=== PATIENT | male | born 1950 | race Caucasian/White ===

== ENCOUNTER 2017-03-17 06:42 | Day surgery (SDC) | payer MEDICARE, BC ==
[~2017-03-17 06:42] MED LIST: Lactated Ringers 1,000 ML IV SCH
[2017-03-17] MEDS ORDERED: Propofol 200 MG/20 ML SDV ONE (07:59)
[2017-03-17] MEDS ORDERED: fentaNYL 100 MCG/2 ML SDV ONE (07:59)
[2017-03-17 09:56] VITALS: BP 111/60
--- NOTE | 2017-03-18 07:48 | OR ---
PREOPERATIVE DIAGNOSIS: Abdominal pain, history of ulcerative colitis. POSTOPERATIVE DIAGNOSIS: Mild gastroesophageal reflux disease and antritis. PROCEDURE PROPOSED AND PROCEDURE DONE: Upper gastrointestinal panendoscopy with GE junction biopsies, antral biopsies, and duodenal biopsies. INDICATION: This is a 66-year-old gentleman who was having some problems with upper abdominal pain and right-sided abdominal pain. He was evaluated with a CAT scan and gallbladder ultrasound. He does have a history of ulcerative colitis for many years, for which he takes Azulfidine. His most recent colonoscopy was 3 to 4 years ago. He does feel 90% better presently. He feels like the Protonix that was recently prescribed to him really helped his symptoms, and he has been on that for little over a week. He was recommended to proceed with an EGD to rule out any significant pathology. TECHNIQUE: The patient was brought to the endoscopy suite and placed in a left lateral decubitus position. He was sedated with MAC anesthesia per [employer] TECHNICIAN with propofol. The flexible video gastroscope was then passed transorally and, under visualization, advanced well down into the third and fourth portion of the duodenum. The duodenum appeared entirely normal. Several biopsies were taken from the duodenum. I then brought the scope back through the pylorus, which appeared normal. The antrum, however, did reveal some mild antritis, and there appeared to be a few punctate tiny ulcerations and some biopsies were taken from the antrum mainly to rule out H. pylori. The body and fundus of the stomach looked very normal. There was no evidence of any hiatal hernia. The GE junction did reveal some very minimal inflammation compatible with a very mild GERD. I did do some biopsies of the GE junction also. The remainder of the esophagus was normal as the scope was then withdrawn. He tolerated the procedure well. FINAL IMPRESSION: 1. Normal duodenum. 2. Minimal antritis and gastroesophageal reflux disease. Biopsies pending. PLAN: The patient appears to be responding nicely to the Protonix that he is on. He needs to continue taking that on a daily basis. He also needs to avoid caffeine, alcohol, ibuprofen, aspirin, and follow up with his PCP as needed. If his symptoms persist or become intermittent, one should consider obtaining a HIDA scan to rule out a gallbladder malfunction. He definitely does not have any gallstones based on his CAT scan and ultrasound. SCM: 03/17/2017 09:00:42 MODL: 03/17/2017 12:43:10 /[id number]
--- NOTE | 2017-03-20 10:47 | LETTER ---
03/20/2017 Mary Mcguire RE: MARY MCGUIRE : 1950 Dear Mr. Mcguire: The biopsies taken from your small intestine revealed no abnormalities. The biopsies taken from your stomach revealed some very mild inflammation and there was no evidence of the bacteria, known as H pylori in your stomach. I also did some biopsies from your gastroesophageal junction and those also did not reveal any worrisome findings. I am pleased to give you this good report. Hopefully, the medicine that you are on is continuing to make you feel better. If you continue to have some symptoms as we had discussed previously, I feel that you should proceed to have the HIDA scan done, and you can arrange that through your family doctor. Respectfully,
== END 2017-03-17 09:59 | disposition home or self-care (01) ==
LOC: VM.SDS 06:42
PROVIDERS: ATTEND Surgery
DX: K31.819 Angiodysplasia of stomach and duodenum without bleeding (principal); K29.60 Other gastritis without bleeding; K21.9 Gastro-esophageal reflux disease without esophagitis; Z79.899 Other long term (current) drug therapy; Z87.891 Personal history of nicotine dependence
CPT/HCPCS: 43239; J2704; J3010; J7120; 88305

== ENCOUNTER 2020-02-09 07:25 | Day surgery (SDC) | payer MEDICARE, BC ==
[2020-02-09] MEDS ORDERED: Sodium Chloride 0.9% 10 ML Syringe FLUSH PRN (08:00)
[2020-02-09] MEDS ORDERED: Lactated Ringers 1,000 ML IV SCH (08:00)
[2020-02-09] MEDS ORDERED: Propofol 200 MG/20 ML SDV ONE ×2 (08:13→09:18)
[2020-02-09] MEDS ORDERED: fentaNYL 100 MCG/2 ML SDV ONE (08:13)
[2020-02-09 10:16] VITALS: BP 106/70; PULSE 60
--- NOTE | 2020-02-09 13:16 | OR ---
DATE OF SURGERY: 02/09/2020. REFERRING PROVIDER: Anjum Olvera MD (new PCP is Dr. Lyon). PRE-OPERATIVE DIAGNOSIS: Ulcerative colitis, diagnosed greater than 20 years ago. The patient on sulfasalazine as needed for flare ups. The patient's last colonoscopy was [address] Mitchell. No family history of any colon cancer nor any inflammatory bowel disease. POST-OPERATIVE DIAGNOSES: 1. Three polyps removed. a. 3 mm polyp x2 in cecum, removed using cold forceps. b. 10 mm polyp at 80 cm, removed using hot snare. 2. No gross colitis seen. Random biopsies were taken from each segment of the colon as well as the distal ileum. 3. Mild hemorrhoids. PROCEDURE: Colonoscopy with polypectomy x3. Random biopsies taken from distal ileum, right colon, transverse colon, left colon, and rectum. Usually 4 bites taken from each segment. SURGEON: Florentino Christianson M.D. ANESTHESIA: Monitored anesthesia care. BOWEL PREP: Good. Pedro is a 69-year-old male who was brought to the endoscopy suite after discussing risks and benefits of the procedure. Informed consent was obtained for conscious sedation and colonoscopy with or without biopsy and/or polypectomy. We also discussed possibility of missed lesions. Pre-procedure exam was unremarkable. IV, oxygen, and monitors were placed. The patient was placed in the left lateral decubitus position. Sedation was administered and a digital rectal exam was performed and unremarkable. Colonoscope was passed into the rectum and slowly advanced all the way to the cecum. Cecum was viewed and photographed. There were 2 small polyps noted, both removed using cold forceps. These were both about 3 mm in size. The ileocecal valve was intubated and distal ileum was normal in appearance. Cold biopsy x2 bites taken. The colonoscope was slowly withdrawn and the mucosa was closed observed in a direct circumferential manner. The ascending colon was unremarkable. The transverse colon revealed 10 mm polyp at 80 cm, removed using hot snare. The descending colon was unremarkable. The sigmoid colon was unremarkable. Retroflexion was performed and rectal mucosa revealed some mild hemorrhoids with some mild irritation. Scope was removed. The patient tolerated the procedure well. The patient was monitored until that baseline status. Discharge instructions were reviewed and the patient was discharged in good condition. COMPLICATIONS: None. TOTAL TIME: 28 minutes. ESTIMATED BLOOD LOSS: About 1 mL. RECOMMENDATIONS/FOLLOW-UP: We will await results of path report to determine ideal followup interval, but I am expecting again in about 2 to 3 years. I would like to kindly thank Dr. Olvera as well as Dr. Lyon for this referral. DMB: 02/09/2020 11:05:13 MODL: 02/09/2020 12:46:56 /[id number]
== END 2020-02-09 10:57 | disposition home or self-care (01) ==
LOC: VM.SDS 07:25
PROVIDERS: ATTEND Family Medicine
DX: Z12.11 Encounter for screening for malignant neoplasm of colon (principal); D12.0 Benign neoplasm of cecum; E78.5 Hyperlipidemia, unspecified; M19.049 Primary osteoarthritis, unspecified hand; K64.9 Unspecified hemorrhoids; Z01.812 Encounter for preprocedural laboratory examination; Z20.828 Contact with and (suspected) exposure to other viral communicable diseases; Z90.49 Acquired absence of other specified parts of digestive tract; Z98.890 Other specified postprocedural states; Z87.891 Personal history of nicotine dependence; Z87.19 Personal history of other diseases of the digestive system; Z79.899 Other long term (current) drug therapy
CPT/HCPCS: 00811; 45380; 45385; 88305; J2704; J3010; J7120; U0002

== ENCOUNTER 2020-09-20 17:28 | Emergency (ER) | payer MEDICARE, BC ==
[2020-09-20 17:39] VITALS: BP 148/85; PULSE 87
[2020-09-20 18:32] LABS: CORONAVIRUS COVID-19 NAA NEGATIVE (NEGATIVE)
[2020-09-20] MEDS ORDERED: Pseudoephedrine 30 MG Tab PO ONE ×2 (18:34→18:39)
--- NOTE | 2020-09-20 19:38 | EDM.PDOC ---
ED HPI GENERAL MEDICAL PROBLEM - General Chief Complaint: General Stated Complaint: BAD COLD Time Seen by Provider: 09/20/20 17:35 Source of Information: Reports: Patient History Limitations: Reports: No Limitations - History of Present Illness INITIAL COMMENTS - FREE TEXT/NARRATIVE: Pt. presents to ER with complaints of sinus congestion, sore throat, subjective fever, ear fullness for the past 3-4 days. He states that he has not been experiencing any significant cough or chest congestion. Pt. states that he has been taking some over the counter cold medicine but does not remember the name. He states that he has been gargling with peroxide in water. Pt. denies any chest pain or shortness of breath. Denies any ill contacts. No nausea, vomiting, or diarrhea. Denies any rashes. No bloody or dark stools. He denies any ill contacts that he is aware of. Pt. does not have a local PCP. 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 Onset: Today Onset Date: 09/16/20 Location: Reports: Head, Face, Generalized Associated Symptoms: Reports: Cough - Related Data Allergies Allergy/AdvReac Type Severity Reaction Status Date / Time No Known Allergies Allergy Verified 09/20/20 17:41 Home Meds: Home Meds . [No Known Home Meds] 09/20/20 [History] Past Medical History HEENT History: Reports: Cataract, Other (See Below) Other HEENT History: hypermetropia Cardiovascular History: Reports: None Respiratory History: Reports: None Gastrointestinal History: Reports: Colon Polyp Other Gastrointestinal History: ulcerative colitis Genitourinary History: Reports: None Musculoskeletal History: Reports: None Neurological History: Reports: None Psychiatric History: Reports: None, Other (See Below) Other Psychiatric History: former smoker Endocrine/Metabolic History: Reports: None Hematologic History: Reports: None Immunologic History: Reports: None Oncologic (Cancer) History: Reports: None Dermatologic History: Reports: None - Past Surgical History HEENT Surgical History: Reports: None Cardiovascular Surgical History: Reports: None GI Surgical History: Reports: Cholecystectomy, Colonoscopy Neurological Surgical History: Reports: None Musculoskeletal Surgical History: Reports: Other (See Below) Other Musculoskeletal Surgeries/Procedures:: hand arthritis Oncologic Surgical History: Reports: None Social & Family History - Tobacco Use Tobacco Use Status *Q: Never Tobacco User - Caffeine Use Caffeine Use: Reports: Coffee ED ROS GENERAL - Review of Systems Review Of Systems: Comprehensive ROS is negative, except as noted in HPI. ED EXAM, GENERAL - Physical Exam Exam: See Below Exam Limited By: No Limitations General Appearance: Alert, WD/WN, No Apparent Distress Eye Exam: Bilateral Eye: EOMI, Normal Fundi, Normal Inspection, PERRL Ears: Normal External Exam, Normal Canal, Hearing Grossly Normal, Normal TMs Ear Exam: Bilateral Ear: Auricle Normal, Canal Normal, TM normal Nose: Normal Inspection, Nasal Swelling, Nasal Drainage, Clear Rhinorrhea Throat/Mouth: Normal Lips, Normal Teeth, No Airway Compromise, Other (Mild erythema to hypopharynx) Head: Atraumatic, Normocephalic Neck: Normal Inspection, Supple, Non-Tender, Full Range of Motion Respiratory/Chest: No Respiratory Distress, Lungs Clear, Normal Breath Sounds, No Accessory Muscle Use, Chest Non-Tender Cardiovascular: Normal Peripheral Pulses, Regular Rate, Rhythm, No Edema, No JVD Peripheral Pulses: 4+: Radial (L) GI/Abdominal: Soft, Non-Tender, No Organomegaly, No Distention, No Mass (Male) Exam: Deferred Rectal (Males) Exam: Deferred Back Exam: Normal Inspection, Full Range of Motion Extremities: Normal Inspection, Normal Range of Motion, Non-Tender, No Pedal Edema, Normal Capillary Refill Neurological: Alert, Oriented, CN II-XII Intact, Normal Cognition, Normal Gait, Normal Reflexes, No Motor/Sensory Deficits Psychiatric: Normal Affect, Normal Mood Skin Exam: Warm, Dry, Intact, Normal Color, No Rash Lymphatic: No Adenopathy Course - Vital Signs Last Recorded V/S: Last Vital Signs Temp 36.9 C 09/20/20 17:35 Pulse 87 09/20/20 17:35 Resp 18 09/20/20 17:35 BP 148/85 H 09/20/20 17:35 Pulse Ox 98 09/20/20 17:35 - Orders/Labs/Meds Labs: Laboratory Tests 09/20/20 09/20/20 Range/Units 17:42 17:42 Influenza Type A RNA Negative (NEGATIVE) Influenza Type B RNA Negative (NEGATIVE) SARS-CoV-2 RNA (MICHELLE) Negative (NEGATIVE) Group A Strep (PCR) Not detected (NOT DETECT) Meds: Medications Discontinued Medications Generic Name Dose Route Start Last Admin Trade Name Gualberto PRN Reason Stop Dose Admin Pseudoephedrine HCl 30 mg 09/20/20 18:34 Pseudoephedrine 30 Mg Tab PO 09/20/20 18:35 ONETIME ONE Pseudoephedrine HCl 30 mg 09/20/20 18:39 09/20/20 18:44 Pseudoephedrine 30 Mg Tab PO 09/20/20 18:40 30 mg ONETIME ONE Administration Departure - Departure Time of Disposition: 18:45 Disposition: Home, Self-Care 01 Clinical Impression: Viral illness - Discharge Information Instructions: Viral Illness, Adult Referrals: PCP,None [Primary Care Provider] - Forms: ED Department Discharge Additional Instructions: pseudoephedrine 30mg 1 tab every 6 hours as needed for congestion. You can also take over the counter antihistamines. I would take benadryl (diphenhydramine) before bed and zyrtec (cetirizine) during the day because it is less drowsy. Tylenol and ibuprofen for fever/discomfort. Drink plenty of fluids. Recheck in clinic in 7-10 days if not gradually improving. Sepsis Event Note (ED) - Evaluation Sepsis Screening Result: No Definite Risk - Focused Exam Vital Signs: Vital Signs Temp Pulse Resp BP Pulse Ox 09/20/20 17:35 36.9 C 87 18 148/85 H 98 - Problem List Review Problem List Initiated/Reviewed/Updated: Yes - Assessment/Plan Plan: pseudoephedrine 30mg 1 tab every 6 hours as needed for congestion. You can also take over the counter antihistamines. I would take benadryl (diphenhydramine) before bed and zyrtec (cetirizine) during the day because it is less drowsy. Tylenol and ibuprofen for fever/discomfort. Drink plenty of fluids. Recheck in clinic in 7-10 days if not gradually improving.
== END 2020-09-20 18:46 | disposition home or self-care (01) ==
LOC: VM.ED 17:28
DX: B34.9 Viral infection, unspecified (principal); Z20.822 Contact with and (suspected) exposure to COVID-19
CPT/HCPCS: 0240U; 87651-QW; 99283; A9270-GY

== ENCOUNTER 2021-06-07 08:55 | Day surgery (SDC) | payer MEDICARE, OTHER ==
[~2021-06-07 08:55] MED LIST changes: +Sodium Chloride 0.9% 10 ML Syringe FLUSH PRN
[2021-06-07 09:15] VITALS: PULSE 66
[2021-06-07] MEDS ORDERED: fentaNYL 100 MCG/2 ML SDV ONE (11:03)
[2021-06-07] MEDS ORDERED: Propofol 200 MG/20 ML SDV ONE (11:03)
[2021-06-07] MEDS ORDERED: Midazolam 1 MG/ML 2 ML SDV ONE (11:03)
[2021-06-07 12:21] VITALS: BP 146/76
[2021-07-05] MEDS ORDERED: Lactated Ringers 1,000 ML IV SCH (07:00)
== END 2021-06-07 12:24 | disposition home or self-care (01) ==
LOC: VM.SDS 08:55
PROVIDERS: ATTEND Student in an Organized Health Care Education/Training Program
DX: K52.9 Noninfective gastroenteritis and colitis, unspecified (principal); E78.5 Hyperlipidemia, unspecified; Z79.899 Other long term (current) drug therapy; Z87.891 Personal history of nicotine dependence; Z90.49 Acquired absence of other specified parts of digestive tract; Z98.890 Other specified postprocedural states; Z86.010 Personal history of colon polyps
CPT/HCPCS: 00811; 88305; J2250; J2704; J3010; J7120